=== PATIENT | female | born 1945 | race Caucasian/White ===

== ENCOUNTER 2017-02-18 17:24 | Inpatient (IN) | payer MEDICARE ==
[~2017-02-18] VITALS: Ht 162.6 cm; Wt 90.6 kg
[2017-02-18] MEDS ORDERED: SODIUM CHLORIDE 0.9% 1,000 ML IV ONE ×2 (18:08→19:29)
[2017-02-18] MEDS ORDERED: LOVA10TA PO (18:25)
[2017-02-18] MEDS ORDERED: SODIUM CHLORIDE 0.9% 1,000ML IVBOLUS ONE (18:30)
[2017-02-18] MEDS ORDERED: CEFTRIAXONE PMX 1GM/50ML 50 ML IVPB ONE (18:30)
[2017-02-18] MEDS ORDERED: PLEASE ENTER ALLERGIES MC SCH ×2 (18:30)
[2017-02-18] MEDS ORDERED: DIGO125T PO (18:34)
[2017-02-18] MEDS ORDERED: ASPI325T17 PO (18:34)
[2017-02-18] MEDS ORDERED: FURO-93 PO (18:34)
[2017-02-18] MEDS ORDERED: METO25TA35 PO (18:34)
[2017-02-18 18:36] LABS: HEMATOCRIT 43.2 % (34.6-47.8); HEMOGLOBIN 14.5 g/dL (11.7-16.4); WHITE BLOOD COUNT 27.7 x10^3/uL (3.4-10)
[2017-02-18] MEDS ORDERED: CEFTRIAXONE PMX 1GM/50ML 50 ML ONE (18:36)
[2017-02-18 18:37] LABS: RAPID INFLUENZA A Negative (Negative); RAPID INFLUENZA B Negative (Negative)
[2017-02-18 18:46] LABS: BLOOD UREA NITROGEN 22 mg/dL (7-18)
[2017-02-18 18:50] LABS: IS PT STATUS REG ER OR PRE ER? YES
[2017-02-18] MEDS ORDERED: AZITHROMYCIN 500 MG in SODIUM CHLORIDE 0.9% 250 ML IV ONE (19:30)
[2017-02-18] MEDS ORDERED: SODIUM CHLORIDE 0.9% 1,000 ML IV SCH (20:06)
[2017-02-18] MEDS ORDERED: POLYETHYLENE GLYCOL 17 GM PACKET PO PRN (20:30)
[2017-02-18] MEDS ORDERED: CEFTRIAXONE PMX 1GM/50ML 50 ML IV SCH (20:30)
[2017-02-18] MEDS ORDERED: ONDANSETRON 2MG/ML, 2ML IVPush PRN (20:30)
[2017-02-18] MEDS ORDERED: BISACODYL 10 MG SUPP PR PRN (20:30)
[2017-02-18] MEDS ORDERED: GUAIFENESIN/DM 200-20MG, 10ML UDC PO PRN (20:30)
[2017-02-18] MEDS: AZITHROMYCIN 500 MG in SODIUM CHLORIDE 0.9% 250 ML IV SCH (21:16)
[2017-02-19] MEDS: METOPROLOL TARTRATE 25 MG TABLET PO SCH ×3 (00:05→20:07)
[2017-02-19] MEDS: LOVASTATIN 20 MG TABLET PO SCH ×2 (00:05→20:07)
[2017-02-19] MEDS: ASPIRIN 325 MG TABLET PO SCH ×2 (00:05→20:06)
[2017-02-19] MEDS: FUROSEMIDE 20 MG TABLET PO SCH ×3 (00:05→20:06)
[2017-02-19] MEDS: HEPARIN 5,000 UNITS/ML, 1ML SQ SCH ×3 (00:06→17:00)
[2017-02-19 02:00] VITALS: BP 110/71
[2017-02-19] MEDS: ACETAMINOPHEN 325 MG TABLET PO PRN (02:08)
[2017-02-19 02:30] VITALS: BP 110/71
[2017-02-19 05:45] LABS: HEMATOCRIT 41.3 % (34.6-47.8); WHITE BLOOD COUNT 19.4 x10^3/uL (3.4-10)
[2017-02-19 05:58] LABS: ASPARTATE AMINO TRANSFERASE 12 U/L (15-37); BLOOD UREA NITROGEN 24 mg/dL (7-18)
[2017-02-19 07:40] VITALS: BP 97/51
[2017-02-19] MEDS ORDERED: FUROSEMIDE 40 MG TABLET ONE ×2 (08:54→19:49)
[2017-02-19] MEDS: SENNA/DOCUSATE TABLET PO SCH (09:00)
[2017-02-19] MEDS: DIGOXIN 0.125 MG TABLET PO SCH (09:01)
[2017-02-19] MEDS ORDERED: VANCOMYCIN PER PHARMACY MC PRN (10:30)
[2017-02-19] MEDS: CEFTRIAXONE PMX 1GM/50ML 50 ML IV SCH ×2 (10:33→21:29)
[2017-02-19] MEDS ORDERED: PHARMACOKINETIC CONSULTATION MC ONE (11:00)
[2017-02-19] MEDS ORDERED: PHARMACOKINETIC MONITORING MC PRN (11:00)
[2017-02-19] MEDS: VANCOMYCIN 1,800 MG in SODIUM CHLORIDE 0.9% 250 ML IV SCH (11:28)
[2017-02-19 14:20] VITALS: BP 108/65
[2017-02-19 20:00] VITALS: BP 128/81
[2017-02-19] MEDS: AZITHROMYCIN 500 MG in SODIUM CHLORIDE 0.9% 250 ML IV SCH (20:05)
[2017-02-20] MEDS: HEPARIN 5,000 UNITS/ML, 1ML SQ SCH ×3 (00:43→16:31)
[2017-02-20 00:44] VITALS: BP 112/68
[2017-02-20 04:43] LABS: HEMOGLOBIN 13.2 g/dL (11.7-16.4); WHITE BLOOD COUNT 8.7 x10^3/uL (3.4-10)
[2017-02-20 04:50] LABS: BLOOD UREA NITROGEN 22 mg/dL (7-18)
[2017-02-20 08:19] VITALS: BP 109/72
[2017-02-20] MEDS: SENNA/DOCUSATE TABLET PO SCH (09:00)
[2017-02-20] MEDS: FUROSEMIDE 20 MG TABLET PO SCH ×2 (09:08→21:18)
[2017-02-20] MEDS: METOPROLOL TARTRATE 25 MG TABLET PO SCH ×2 (09:08→21:17)
[2017-02-20] MEDS: DIGOXIN 0.125 MG TABLET PO SCH (09:09)
[2017-02-20] MEDS: CEFTRIAXONE PMX 1GM/50ML 50 ML IV SCH ×2 (09:09→22:08)
[2017-02-20] MEDS: VANCOMYCIN 1,800 MG in SODIUM CHLORIDE 0.9% 250 ML IV SCH (12:36)
[2017-02-20 15:32] VITALS: BP 120/77
[2017-02-20] MEDS: ACETAMINOPHEN 325 MG TABLET PO PRN ×2 (16:31→21:23)
[2017-02-20 18:44] VITALS: BP 118/74
[2017-02-20] MEDS: LOVASTATIN 20 MG TABLET PO SCH (21:00)
[2017-02-20] MEDS: ASPIRIN 325 MG TABLET PO SCH (21:18)
[2017-02-20] MEDS: AZITHROMYCIN 500 MG in SODIUM CHLORIDE 0.9% 250 ML IV SCH (21:42)
[2017-02-21 00:54] VITALS: BP 107/68
[2017-02-21] MEDS: HEPARIN 5,000 UNITS/ML, 1ML SQ SCH ×3 (03:01→17:15)
[2017-02-21 08:07] VITALS: BP 129/80
[2017-02-21] MEDS: CEFTRIAXONE PMX 1GM/50ML 50 ML IV SCH (08:54)
[2017-02-21] MEDS: FUROSEMIDE 20 MG TABLET PO SCH ×2 (08:55→20:34)
[2017-02-21] MEDS: SENNA/DOCUSATE TABLET PO SCH (08:55)
[2017-02-21] MEDS: METOPROLOL TARTRATE 25 MG TABLET PO SCH ×2 (08:55→20:34)
[2017-02-21] MEDS: DIGOXIN 0.125 MG TABLET PO SCH (08:55)
[2017-02-21] MEDS: VANCOMYCIN 1,800 MG in SODIUM CHLORIDE 0.9% 250 ML IV SCH (11:19)
[2017-02-21 14:39] VITALS: BP 126/74
[2017-02-21] MEDS ORDERED: GUAIFENESIN/DM 200-20MG, 10ML UDC PO PRN (16:30)
[2017-02-21] MEDS: ACETAMINOPHEN 325 MG TABLET PO PRN (17:15)
[2017-02-21] MEDS: AZITHROMYCIN 500 MG TABLET PO SCH (17:15)
[2017-02-21 19:22] VITALS: BP 141/76
[2017-02-21] MEDS: LOVASTATIN 20 MG TABLET PO SCH (20:34)
[2017-02-21] MEDS: ASPIRIN 325 MG TABLET PO SCH (20:34)
[2017-02-22] MEDS: HEPARIN 5,000 UNITS/ML, 1ML SQ SCH ×2 (01:05→10:40)
[2017-02-22 03:05] VITALS: BP 127/75
[2017-02-22 05:37] LABS: HEMATOCRIT 39.6 % (34.6-47.8); HEMOGLOBIN 13.3 g/dL (11.7-16.4); WHITE BLOOD COUNT 6.7 x10^3/uL (3.4-10)
[2017-02-22 05:55] LABS: BLOOD UREA NITROGEN 14 mg/dL (7-18)
[2017-02-22 07:28] VITALS: BP 150/84
[2017-02-22] MEDS: AZITHROMYCIN 500 MG TABLET PO SCH (07:53)
[2017-02-22] MEDS: METOPROLOL TARTRATE 25 MG TABLET PO SCH (07:53)
[2017-02-22] MEDS: FUROSEMIDE 20 MG TABLET PO SCH (07:53)
[2017-02-22] MEDS: DIGOXIN 0.125 MG TABLET PO SCH (07:53)
[2017-02-22] MEDS: SENNA/DOCUSATE TABLET PO SCH (07:53)
[2017-02-22] MEDS: ACETAMINOPHEN 325 MG TABLET PO PRN (07:57)
[2017-02-22] MEDS ORDERED: CEFTRIAXONE PMX 1GM/50ML 50 ML IV SCH (09:30)
[2017-02-22 14:01] VITALS: BP 148/89
== END 2017-02-22 15:00 | disposition home or self-care (01) | DRG 871 ==
LOC: ED 19:00 → EDIP 19:31 → 5SO 02-19 01:26 → 4EST 02-20 16:15 → DCLOUNGE 02-22 14:45
PROVIDERS: ADMIT Surgery; ATTEND Internal Medicine
PROC: 02HV33Z Insertion of Infusion Device into Superior Vena Cava, Percutaneous Approach (ICD-10-PCS; principal; 2017-02-22)
PROC: B548ZZA Ultrasonography of Superior Vena Cava, Guidance (ICD-10-PCS; 2017-02-22)
DX: A41.9 Sepsis, unspecified organism (principal); J96.01 Acute respiratory failure with hypoxia; J18.1 Lobar pneumonia, unspecified organism; J18.9 Pneumonia, unspecified organism; E44.0 Moderate protein-calorie malnutrition; D68.69 Other thrombophilia; I48.2 Chronic atrial fibrillation; E11.9 Type 2 diabetes mellitus without complications; N39.0 Urinary tract infection, site not specified; G47.33 Obstructive sleep apnea (adult) (pediatric); I10 Essential (primary) hypertension; Z88.0 Allergy status to penicillin; Z90.710 Acquired absence of both cervix and uterus; Z90.49 Acquired absence of other specified parts of digestive tract; Z68.34 Body mass index [BMI] 34.0-34.9, adult; Z88.2 Allergy status to sulfonamides; Z88.5 Allergy status to narcotic agent
CPT/HCPCS: 36415; 36569; 71010; 76937; 77001; 80048; 80053; 81001; 82040; 83605; 83880; 84484; 85025; 85651; 86141; 87040; 87070; 87077; 87086; 87181; 87205; 87400; 93005; 93306; J0456; J0696; J1644; J3370; C1751; J7030; J7050

== ENCOUNTER 2017-03-04 11:47 | Inpatient (IN) | payer MEDICARE, BC ==
[~2017-03-04] VITALS: Ht 170.2 cm; Wt 91.7 kg
[~2017-03-04 11:47] MED LIST: ASPI325T17 PO; DIGO125T PO; FURO-93 PO; LOVA10TA PO; METO25TA35 PO
[2017-03-04 12:44] LABS: BASOPHILS # (AUTO) 0.02 x10^3/uL (0-0.1); BASOPHILS % (AUTO) 1 % (0-1); EOSINOPHILS # (AUTO) 0.06 x10^3/uL (0-0.4); EOSINOPHILS % (AUTO) 1 % (1-7); LYMPHOCYTES # (AUTO) 1.79 x10^3/uL (1-3.4); LYMPHOCYTES % (AUTO) 43 % (22-44); MD NO; MEAN CORPUSCULAR HEMOGLOBIN 31.2 pg (27.0-34.8); MEAN CORPUSCULAR HGB CONC 33.5 g/dL (32.4-35.8); MEAN CORPUSCULAR VOLUME 93.4 fL (80-100); MEAN PLATELET VOLUME 9.1 fL (7.4-10.4); MONOCYTES # (AUTO) 0.62 x10^3/uL (0.2-0.8); MONOCYTES % (AUTO) 15 % (2-9); NEUTROPHILS # (AUTO) 1.67 x10^3/uL (1.8-6.8); NEUTROPHILS % (AUTO) 40 % (42-75); PLATELET COUNT 193 x10^3/uL (130-400); RED BLOOD COUNT 4.74 x10^6/uL (3.82-5.3); RED CELL DISTRIBUTION WIDTH 14.3 % (9.6-15.2)
[2017-03-04 12:51] LABS: ALBUMIN 3.3 g/dL (3.4-5.0); ANION GAP 5 mmol/L (5-15); CALCIUM 9.8 mg/dL (8.5-10.1); CHLORIDE 103 mmol/L (98-107); CREATININE 0.63 mg/dL (0.55-1.02); INTERNATIONAL NORMALIZED RATIO 0.98 (0.93-1.1); PROTHROMBIN TIME 10.2 Seconds (9.6-11.5)
[2017-03-04] MEDS ORDERED: OMNIPAQUE 350 MG/ML, 100ML BOTTLE ONE (14:05)
[2017-03-04] MEDS ORDERED: ENOXAPARIN 100 MG/ML SQ ONE (15:30)
[2017-03-04] MEDS ORDERED: SODIUM CHLORIDE FLUSH 10ML SYR IVF PRN (15:30)
[2017-03-04] MEDS ORDERED: morphine SULFATE 10 MG/ML, 1ML IVPush PRN (17:00)
[2017-03-04] MEDS ORDERED: POLYETHYLENE GLYCOL 17 GM PACKET PO PRN (17:00)
[2017-03-04] MEDS ORDERED: hydrALAzine 20 MG/ML, 1ML IVPush PRN (17:00)
[2017-03-04] MEDS ORDERED: BISACODYL 10 MG SUPP PR PRN (17:00)
[2017-03-04] MEDS ORDERED: ONDANSETRON 2MG/ML, 2ML IVPush PRN (17:00)
[2017-03-04] MEDS ORDERED: ENALAPRILAT 1.25 MG/ML, 2ML IVPush PRN (17:00)
[2017-03-04 17:51] LABS: FREE T4 (FREE THYROXINE) 1.35 ng/dL (0.76-1.46); THYROID STIMULATING HORMONE 1.14 mIU/L (0.358-3.740)
[2017-03-04 17:52] VITALS: BP 128/73
[2017-03-04 17:58] LABS: HEMOGLOBIN A1C 5.9 % (4.2-6.3)
[2017-03-04] MEDS: DOXYCYCLINE 100 MG in DEXTROSE 5% 250 ML IV SCH (18:43)
[2017-03-04 20:44] VITALS: BP 118/68
[2017-03-04] MEDS ORDERED: APIXABAN 5 MG TABLET PO SCH (21:00)
[2017-03-04] MEDS: FUROSEMIDE 20 MG TABLET PO SCH (22:26)
[2017-03-04] MEDS: METOPROLOL TARTRATE 25 MG TABLET PO SCH (22:26)
[2017-03-04] MEDS: LOVASTATIN 20 MG TABLET PO SCH (22:27)
[2017-03-05 00:14] VITALS: BP 118/74
[2017-03-05 05:30] LABS: BASOPHILS # (AUTO) 0.03 x10^3/uL (0-0.1); BASOPHILS % (AUTO) 1 % (0-1); EOSINOPHILS # (AUTO) 0.07 x10^3/uL (0-0.4); EOSINOPHILS % (AUTO) 2 % (1-7); LYMPHOCYTES # (AUTO) 1.69 x10^3/uL (1-3.4); LYMPHOCYTES % (AUTO) 45 % (22-44); MD NO; MEAN CORPUSCULAR HEMOGLOBIN 31.6 pg (27.0-34.8); MEAN CORPUSCULAR HGB CONC 33.7 g/dL (32.4-35.8); MEAN CORPUSCULAR VOLUME 93.7 fL (80-100); MEAN PLATELET VOLUME 9.2 fL (7.4-10.4); MONOCYTES # (AUTO) 0.63 x10^3/uL (0.2-0.8); MONOCYTES % (AUTO) 17 % (2-9); NEUTROPHILS # (AUTO) 1.32 x10^3/uL (1.8-6.8); NEUTROPHILS % (AUTO) 35 % (42-75); PLATELET COUNT 177 x10^3/uL (130-400); RED BLOOD COUNT 4.47 x10^6/uL (3.82-5.3); RED CELL DISTRIBUTION WIDTH 14.2 % (9.6-15.2)
[2017-03-05 05:33] LABS: CHLORIDE 105 mmol/L (98-107)
[2017-03-05 05:49] LABS: ALANINE AMINOTRANSFERASE 26 U/L (12-78); ALKALINE PHOSPHATASE 64 U/L (45-117); ANION GAP 6 mmol/L (5-15); BILIRUBIN,TOTAL 0.5 mg/dL (0.2-1.0); CALCIUM 9.5 mg/dL (8.5-10.1); CHOL/HDL RATIO 2.8; CHOLESTEROL, TOTAL 97 mg/dL (140-239); CREATININE 0.53 mg/dL (0.55-1.02); HDL CHOL % 36 % (28-40); HDL CHOLESTEROL (DIRECT) 35 mg/dL (40-60); LDL CHOLESTEROL,CALCULATED 40 mg/dL (54-169); LDL/HDL RATIO 1.1 (0.5-3.0); TOTAL PROTEIN 6.8 g/dL (6.4-8.2); TRIGLYCERIDES 108 mg/dL (50-200); VLDL CHOLESTEROL 22 mg/dL (0-25)
[2017-03-05] MEDS: DOXYCYCLINE 100 MG in DEXTROSE 5% 250 ML IV SCH ×2 (07:35→20:24)
[2017-03-05] MEDS: SENNA/DOCUSATE TABLET PO SCH (09:00)
[2017-03-05 09:05] VITALS: BP 127/75
[2017-03-05] MEDS: APIXABAN 5 MG TABLET PO SCH ×2 (09:21→20:25)
[2017-03-05] MEDS: CEFTRIAXONE PMX 2GM/50ML 50 ML IV SCH (09:21)
[2017-03-05] MEDS: METOPROLOL TARTRATE 25 MG TABLET PO SCH ×2 (09:22→20:25)
[2017-03-05] MEDS: DIGOXIN 0.125 MG TABLET PO SCH (09:22)
[2017-03-05] MEDS: FUROSEMIDE 20 MG TABLET PO SCH ×2 (09:22→20:25)
[2017-03-05 14:00] VITALS: BP 99/64
[2017-03-05 18:22] LABS: MICROSCOPIC NOT IND
[2017-03-05 18:26] LABS: CULTURE INDICATED? NO
[2017-03-05 19:39] VITALS: BP 119/72
[2017-03-05] MEDS: LOVASTATIN 20 MG TABLET PO SCH (20:25)
[2017-03-06 00:28] VITALS: BP 112/71
[2017-03-06 07:04] VITALS: BP 121/75
[2017-03-06] MEDS: DOXYCYCLINE 100 MG in DEXTROSE 5% 250 ML IV SCH ×2 (08:53→20:27)
[2017-03-06] MEDS: SENNA/DOCUSATE TABLET PO SCH (09:00)
[2017-03-06] MEDS: METOPROLOL TARTRATE 25 MG TABLET PO SCH ×2 (10:03→20:27)
[2017-03-06] MEDS: FUROSEMIDE 20 MG TABLET PO SCH (10:04)
[2017-03-06] MEDS: APIXABAN 5 MG TABLET PO SCH ×2 (10:04→20:27)
[2017-03-06] MEDS: DIGOXIN 0.125 MG TABLET PO SCH (10:04)
[2017-03-06] MEDS: CEFTRIAXONE PMX 2GM/50ML 50 ML IV SCH (10:04)
[2017-03-06 13:30] VITALS: BP 108/64
[2017-03-06] MEDS ORDERED: ACETAMINOPHEN 325 MG TABLET PO PRN (17:30)
[2017-03-06 19:40] VITALS: BP 106/68
[2017-03-06] MEDS: LOVASTATIN 20 MG TABLET PO SCH (20:27)
[2017-03-07 01:35] VITALS: BP 99/63
[2017-03-07] MEDS: ACETAMINOPHEN 325 MG TABLET PO PRN ×2 (05:11→14:24)
[2017-03-07 07:15] VITALS: BP 102/71
[2017-03-07] MEDS: DOXYCYCLINE 100 MG in DEXTROSE 5% 250 ML IV SCH (08:15)
[2017-03-07] MEDS: SENNA/DOCUSATE TABLET PO SCH (09:00)
[2017-03-07] MEDS: CEFTRIAXONE PMX 2GM/50ML 50 ML IV SCH (09:44)
[2017-03-07] MEDS: METOPROLOL TARTRATE 25 MG TABLET PO SCH (11:03)
[2017-03-07] MEDS: DIGOXIN 0.125 MG TABLET PO SCH (11:03)
[2017-03-07] MEDS: APIXABAN 5 MG TABLET PO SCH (11:03)
[2017-03-07 13:52] VITALS: BP 118/80
[2017-03-07] MEDS ORDERED: DOXY100T10 PO (17:13)
[2017-03-07] MEDS ORDERED: APIX5TAB PO (17:13)
[2017-03-08] MEDS ORDERED: FUROSEMIDE 20 MG TABLET PO SCH (09:00)
== END 2017-03-07 20:40 | disposition home or self-care (01) | DRG 299 ==
LOC: MERGE 11:47 → ED 13:52 → EDIP 15:03 → 3NE 16:25
PROVIDERS: ADMIT Internal Medicine; ATTEND Internal Medicine
DX: I82.A12 Acute embolism and thrombosis of left axillary vein (principal); J18.9 Pneumonia, unspecified organism; E44.0 Moderate protein-calorie malnutrition; D68.69 Other thrombophilia; I48.2 Chronic atrial fibrillation; E11.9 Type 2 diabetes mellitus without complications; E78.5 Hyperlipidemia, unspecified; G47.33 Obstructive sleep apnea (adult) (pediatric); I10 Essential (primary) hypertension; I45.10 Unspecified right bundle-branch block; Z79.01 Long term (current) use of anticoagulants; Z79.82 Long term (current) use of aspirin; Z87.891 Personal history of nicotine dependence; Z90.710 Acquired absence of both cervix and uterus; Z68.31 Body mass index [BMI] 31.0-31.9, adult; Z88.0 Allergy status to penicillin; Z88.2 Allergy status to sulfonamides; Z88.5 Allergy status to narcotic agent
CPT/HCPCS: 36415; 71275; 80048; 80053; 80061; 81003; 82040; 83036; 83735; 84439; 84443; 85025; 85610; 85730; 87040; 87070; 87205; 93005; 96372; J0696; J1650; J2405; J7060; Q9967